=== PATIENT | female | born 1945 | race Caucasian/White ===

== ENCOUNTER → 2016-12-28 | Outpatient (CLI) | payer OTHER, MEDICAID ==
[2012-10-30 09:53] VITALS: BP 172/88
--- NOTE | 2016-12-28 16:47 | US ---
HISTORY: Right breast lump with nipple inversion Bilateral digital diagnostic mammography with CAD and right breast ultrasound. Comparison: None FINDINGS: Mammogram: Bilateral CC and MLO projections of the right and left breast were obtained. An ML view o f the right breast was also obtained. Scattered fibroglandular tissue is seen to be present. There i s no dominant suspicious mass or architectural distortion on the left. However , there is a dominant irregular spiculated hyperdense mass in the upper-outer subareolar right breast with associated arch itectural distortion and nipple retraction. No skin thickening or nipple retraction is appreciated. Benign-appearing calcifications are noted within the right and left breast. There are benign appeari ng sub cm nodules in the upper-outer quadrants of both breasts posteriorly most likely reflecting sma ll intramammary lymph nodes. No pathological lymphadenopathy can be identified. Ultrasound: Multiple grayscale and color Doppler images were obtained in the region of interest at 9- 10 o'clock on the right approximately 4 cm from the nipple where there is an underlying irregular ill -defined solid hypoechoic mass with posterior acoustical shadowing and internal Doppler flow as well as angulated margins measuring 2.7 cm with a few internal microcalcifications which is highly suspici ous for malignancy and corresponds to the clinically palpable findings as well as mammographic abnorm ality. IMPRESSION: Large right breast mass highly suspicious for malignancy for which ultrasound-guided bio psy is recommended. ACR CATEGORY 5 - highly suspicious of malignancy; biopsy should be performed. Diagnostic CAD was utilized and reviewed. * 0 (ZERO) - ASSESSMENT INCOMPLETE; ADDITIONAL IMAGING IS NEEDED. * 1/1 (ONE) - NEGATIVE. * 2/II (TWO) - BENIGN FINDINGS. * 3/III (THREE) - PROBABLY BENIGN FINDING; SHORT INTERVAL FOLLOW-UP SUGGESTED. * 4/IV (FOUR) - SUSPICIOUS ABNORMALITY; BIOPSY SHOULD BE CONSIDERED. * 5/V (FIVE) - HIGHLY SUSPICIOUS OF MALIGNANCY; BIOPSY SHOULD BE PERFORMED. A NEGATIVE X-RAY REPORT SHOULD NOT DELAY BIOPSY IF A DOMINANT OR CLINICALLY SUSPICIOUS MASS IS PRESENT; 4 TO 8 PERCENT OF CANCERS ARE NOT IDENTIFIED BY X-RAY. A NEGA TIVE REPORT MAY REINFORCE THE CLINICAL IMPRESSION. ADENOSIS AND DENSE BREASTS MAY OBSCURE AN UNDERLY ING NEOPLASM. Reported By:
== END ==
LOC: RAD 15:21
PROVIDERS: ATTEND Nurse Practitioner Family
DX: N64.59 Other signs and symptoms in breast (principal)
CPT/HCPCS: 76642; 77066